=== PATIENT | female | born 1980 | race Caucasian/White ===

== ENCOUNTER → 2018-03-27 | Outpatient (CLI) | payer BC ==
--- NOTE | 2018-03-27 12:57 | US ---
EXAMINATION TYPE: US pelvis complete transvag DATE OF EXAM: 03/27/2018 COMPARISON: multiple US's CLINICAL HISTORY: Ovarian Cyst N83.209. TECHNIQUE: Transvaginal (TV) and Transabdominal (TA) . Transabdominal sonographic images of the pel vis were acquired. Transvaginal sonographic images were medically necessary to better assess the fol lowing anatomy: ovaries. Date of LMP: 02/24/2018 EXAM MEASUREMENTS: Uterus: 9.3 x 4.3 x 4.8 cm Endometrial Stripe: 1.1 cm Right Ovary: 3.9 x 2.0 x 1.7 cm Left Ovary: 2.8 x 1.6 x 2.7 cm Patient's gives history of dermoid removal. Patient was unable to get , after dermoid removal there was a successful . 1. Uterus: Anteverted wnl 2. Endometrium: wnl 3. Right Ovary: echogenic area measures 0.9 x 0.6 x 0.7 cm. 4. Left Ovary: wnl 5. Bilateral Adnexa: wnl 6. Posterior cul-de-sac: no free fluid No endometrial thickening. Left ovary is unremarkable. Right ovary demonstrates a hyperechoic 0.9 x 0 .6 x 0.7 cm focus that could represent a recurrent dermoid. 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 Pe lvic MRI is recommended for further assessment.
== END | disposition home or self-care (01) ==
LOC: RADUSWWP 10:37
PROVIDERS: ATTEND Obstetrics & Gynecology
DX: N83.209 Unspecified ovarian cyst, unspecified side (principal)
CPT/HCPCS: 76830; 76856

== ENCOUNTER → 2019-07-30 | Outpatient (CLI) | payer BC ==
--- NOTE | 2019-07-30 10:22 | US ---
EXAMINATION TYPE: US transvaginal DATE OF EXAM: 07/30/2019 COMPARISON: Multiple Ultrasounds. Latest was 03/27/18 CLINICAL HISTORY: N83.209 Ovarian cyst. History of dermoid removal per previous US. TECHNIQUE: Transvaginal (TV). Transabdominal sonographic images of the pelvis were acquired. Trans vaginal sonographic images were medically necessary to better assess the following anatomy: Date of LMP: 07/23/2019 EXAM MEASUREMENTS: Uterus: 9.4 x 5.4 x 4.2 cm Endometrial Stripe: 0.3 cm Right Ovary: 4.0 x 2.6 x 2.2 cm Left Ovary: 3.0 x 2.2 x 1.7 cm 1. Uterus: Anteverted Multiple Nabothian cysts. Largest = 1.1 x 1.0 x 0.7 cm 2. Endometrium: wnl 3. Right Ovary: Multiple follicles. Largest = 1 cm. Echogenic area in Right Ovary, possible residual or residual dermoid = 2.0 x 1.5 x 1.3 cm 4. Left Ovary: Multiple follicles. Largest = 1.1 cm Spectral, color and waveform doppler imaging shows good arterial and venous flow within the ovaries ; there is no evidence for ovarian torsion. 5. Bilateral Adnexa: wnl 6. Posterior cul-de-sac: wnl IMPRESSION: Again there is an echogenic focus measuring 2.0 cm, somewhat larger on current measuremen ts on the prior that may represent residual or recurrent dermoid. MR pelvis with nonfat saturated and fat saturated images could confirm.
== END ==
LOC: RADUSWWP 09:10
PROVIDERS: ATTEND Family Medicine
DX: R93.89 Abnormal findings on diagnostic imaging of other specified body structures (principal)
CPT/HCPCS: 76830

== ENCOUNTER → 2019-11-02 | Outpatient (CLI) | payer BC ==
--- NOTE | 2019-11-02 10:44 | US ---
EXAMINATION TYPE: US pelvis complete transvag DATE OF EXAM: 11/02/2019 COMPARISON: Multiple US's and CT, most recent ultrasound July 30, 2019 CLINICAL HISTORY: F/U rt ovarian cyst. TECHNIQUE: Transvaginal (TV) and Transabdominal (TA) . Transabdominal sonographic images of the pel vis were acquired. Transvaginal sonographic images were medically necessary to better assess the fol lowing anatomy: right ovary Date of LMP: unknown EXAM MEASUREMENTS: Uterus: 9.3 x 4.3 x 4.8 cm Endometrial Stripe: 0.9 cm Right Ovary: 3.9 x 2.0 x 1.7 cm Left Ovary: 2.8 x 1.6 x 2.7 cm 1. Uterus: Anteverted wnl 2. Endometrium: wnl 3. Right Ovary: echogenic area measures 0.9 x 0.6 x 0.7 cm. 4. Left Ovary: wnl 5. Bilateral Adnexa: wnl 6. Posterior cul-de-sac: no free fluid Persistent heterogeneous anteverted uterus. Some small nabothian cysts in the cervix on transvaginal imaging are redemonstrated. Endometrial stripe less well seen on current study without vicious thicke martita. No free fluid in pelvic cul-de-sac. Both ovaries redemonstrated with peripheral follicles scattered throughout the left ovary similar to prior. Right ovary on current study shows central 11 x 9 mm hyperechoic area with lobulation, hypoech oic portion and shadowing not identified on current study. IMPRESSION: No concerning adnexal mass identified on current study. Central hyperechoic area could re flect trapped intraperitoneal fat when correlating with CT coronal image 43 surrounded by normal righ t ovarian tissue.
== END | disposition home or self-care (01) ==
LOC: RADUSWWP 09:45
PROVIDERS: ATTEND Obstetrics & Gynecology
DX: N83.291 Other ovarian cyst, right side (principal)
CPT/HCPCS: 76830; 76856

== ENCOUNTER → 2019-11-02 | Outpatient (CLI) | payer BC ==
--- NOTE | 2019-11-02 11:11 | MM ---
Reason for exam: screening (asymptomatic). Baseline mammogram. History: Patient had first child at age 32. Physical Findings: Nurse did not find any significant physical abnormalities on exam. MG Screening Mammo w CAD Bilateral CC and MLO view(s) were taken. The breast tissue is heterogeneously dense. This may lower the sensitivity of mammography. There are benign appearing round, regional and grouped calcifications bilaterally. No suspicious abnormality. Benign bilateral axillary lymph nodes redemonstrated. These results were verbally communicated with the patient and result sheet given to the patient on 11/02/19. ASSESSMENT: Benign, BI-RAD 2 RECOMMENDATION: Routine screening mammogram of both breasts in 1 year.
== END ==
LOC: RADMAMWWP 10:25
PROVIDERS: ATTEND Family Medicine
DX: Z12.31 Encounter for screening mammogram for malignant neoplasm of breast (principal)
CPT/HCPCS: 77067

== ENCOUNTER → 2020-12-01 | Outpatient (CLI) | payer BC ==
--- NOTE | 2020-12-01 14:28 | US ---
EXAMINATION TYPE: US pelvis complete transvag DATE OF EXAM: 12/01/2020 COMPARISON: US CLINICAL HISTORY: N83.209 unspecified ovarian cyst. F/U TECHNIQUE: Transvaginal (TV) and Transabdominal (TA) . Transabdominal and transvaginal sonographic images of the pelvis were acquired. Date of LMP: 11/05/2020 EXAM MEASUREMENTS: Uterus: 9.7 x 4.5 x 5.2 cm Endometrial Stripe: 1.0 cm Right Ovary: 3.9 x 2.6 x 3.4 cm Left Ovary: 4.2 x 3.6 x 5.3 cm 1. Uterus: Anteverted wnl, Nabothian cyst in cervix= 0.9 cm 2. Endometrium: Thickened 3. Right Ovary: Echogenic are as seen on multiple previous= 1.0 x 0.9 x 1.2 cm 4. Left Ovary: Complex, multicystic lesion= 4.4 x 3.1 x 3.7 cm 5. Bilateral Adnexa: wnl 6. Posterior cul-de-sac: wnl IMPRESSION: 1. No Complex cyst left ovary. Follow-up is recommended. Correlation with laboratory results is recom mended. 2. Echogenic foci within the right ovary.
== END | disposition home or self-care (01) ==
LOC: RADUSWWP 07:40
PROVIDERS: ATTEND Family Medicine
DX: R93.89 Abnormal findings on diagnostic imaging of other specified body structures (principal)
CPT/HCPCS: 76830; 76856

== ENCOUNTER → 2022-01-02 | Outpatient (CLI) | payer BC ==
--- NOTE | 2022-01-02 10:02 | MM ---
Reason for exam: clinical finding. Last mammogram was performed 2 years and 2 months ago. History: Patient had first child at age 32. Family history of breast cancer in cousin at age 50. Indicated problem(s): lump or thickening in the right breast. Physical Findings: A clinical breast exam by your physician is recommended on an annual basis and results should be correlated with mammographic findings. MG 3D Diag Mammo W/Cad RT CC and MLO view(s) were taken of the right breast. Prior study comparison: November 02, 2019, bilateral MG screening mammo w CAD. The breast tissue is heterogeneously dense. This may lower the sensitivity of mammography. No significant changes when compared with prior studies. ASSESSMENT: Benign, BI-RAD 2 RECOMMENDATION: Follow-up diagnostic mammogram. Patient is due now for a left breast mammogram. Manage patient on a clinical basis.
== END | disposition home or self-care (01) ==
LOC: RADMAMWWP 07:12
PROVIDERS: ATTEND Obstetrics & Gynecology
DX: N63.10 Unspecified lump in the right breast, unspecified quadrant (principal); Z80.3 Family history of malignant neoplasm of breast
CPT/HCPCS: 77061; 77065